=== PATIENT | female | born 2000 | race Two or more races ===

== ENCOUNTER 2021-07-21 13:04 | Inpatient (IN) | payer OTHER ==
[2021-07-21] MEDS ORDERED: Butorphanol Tartrate 1 MG/ML VIAL SLOW IVP PRN (13:47)
[2021-07-21] MEDS ORDERED: Lidocaine 1% (PF) 30 ML VIAL SC PRN (13:47)
[2021-07-21] MEDS ORDERED: Ibuprofen 800 MG TAB PO PRN (13:47)
[2021-07-21] MEDS ORDERED: Promethazine HCl 25 MG/ML VIAL IM PRN (13:47)
[2021-07-21] MEDS ORDERED: Docusate 100 MG CAP PO PRN (13:47)
[2021-07-21] MEDS ORDERED: Acetaminophen 500 MG TAB PO PRN (13:47)
[2021-07-21] MEDS ORDERED: Diphenoxylate HCl/Atropine Tablet PO PRN ×2 (13:47)
[2021-07-21] MEDS ORDERED: Ondansetron PF 4 MG/2 ML Vial IVP PRN (13:47)
[2021-07-21] MEDS ORDERED: Zolpidem Tartrate 5 MG TAB PO PRN (13:47)
[2021-07-21] MEDS ORDERED: HYDROcodone/Acetaminophen 5/325 mg Tablet PO PRN ×2 (13:47)
[2021-07-21] MEDS ORDERED: Misoprostol 200 MCG TAB PR PRN (13:47)
[2021-07-21] MEDS ORDERED: NS w/ Oxytocin 30 units 500 ML IV SCH ×2 (14:00)
[2021-07-21] MEDS ORDERED: NS w/ Oxytocin 30 units 500 ML IVPB SCH (14:00)
[2021-07-21 14:21] VITALS: BMI 60.7
[2021-07-21] MEDS ORDERED: Bupivacaine 0.25% HCL 30 ML VIAL ONE (14:33)
[2021-07-21] MEDS: Misoprostol 100 MCG TAB VAG SCH ×2 (15:29→21:51)
[2021-07-21 15:34] LABS: Hemoglobin 10.9 g/dL (12.0-15.5); Mean Corpuscular HGB CONC 31.9 g/dL (32.0-36.0); Mean Corpuscular Hemoglobin 24.4 pg (27.0-33.0); Mean Corpuscular Volume 76.7 fl (81.6-98.3); Mean Platelet Volume 10.1 fl (7.4-10.4); Platelet Count 252 10x3/uL (150-450); RBC Distribution Width 18.3 % (11.5-14.5); Red Blood Cell (RBC) Count 4.46 10x6/uL (3.90-5.03)
[2021-07-21 16:02] LABS: HIV (1/2) Antibody/Antigen Non-Reactive (NonReactive); HIV 1/2 INDEX 0.05 S/CO (<1.00); Hep B Surf Ag Non-Reactive S/CO (NonReactive)
[2021-07-21 16:32] LABS: HBSAg Index 0.19 S/CO (0-0.99)
[2021-07-21 17:30] LABS: SARS-CoV-2 NAA Rapid Test Not Detected (NotDetected)
[2021-07-21] MEDS: Labetalol HCl 200 MG TAB PO SCH (21:50)
[2021-07-21 22:03] LABS: Syphilis Antibody Index 16.59 S/CO (<1.00 Non-Reactive)
[2021-07-21 22:07] LABS: Syphilis Antibody REACTIVE (Nonreactive)
[2021-07-22] MEDS ORDERED: Fentanyl 2 mcg/Bup 0.1% Cadd 100 ML ONE ×2 (00:06→12:54)
[2021-07-22] MEDS ORDERED: Hydrocerin (Eucerin) Cream 120 gm Jar TOP PRN ×2 (01:16→21:04)
[2021-07-22] MEDS ORDERED: Ondansetron PF 4 MG/2 ML Vial IVP PRN ×4 (01:16→23:12)
[2021-07-22] MEDS ORDERED: Naloxone HCl 0.4 mg/ml Vial IVP PRN ×4 (01:16→21:04)
[2021-07-22] MEDS ORDERED: diphenhydrAMINE 50 MG/ML VIAL IVP PRN ×3 (01:16→23:12)
[2021-07-22] MEDS ORDERED: Lactated Ringer's 500 ML IV PRN (01:16)
[2021-07-22] MEDS ORDERED: Promethazine HCl 25 MG/ML VIAL IM PRN ×3 (01:16→23:12)
[2021-07-22] MEDS ORDERED: Acetaminophen 325 MG TAB PO PRN ×2 (01:16→21:22)
[2021-07-22] MEDS ORDERED: ePHEDrine Sulfate 50 MG/10 ML VIAL SLOW IVP PRN (01:16)
[2021-07-22] MEDS ORDERED: Fentanyl 2 mcg/Bupivacaine 0.1% Cassette 100 ML EPIDURAL SCH (01:30)
[2021-07-22] MEDS ORDERED: Communication Order-Pharmacy FS SCH ×3 (01:30→23:15)
[2021-07-22] MEDS ORDERED: Butorphanol Tartrate 1 MG/ML VIAL ONE (02:55)
[2021-07-22] MEDS ORDERED: Butorphanol Tartrate 1 MG/ML VIAL SLOW IVP PRN (04:51)
[2021-07-22] MEDS: Misoprostol 100 MCG TAB VAG SCH (05:34)
[2021-07-22] MEDS: Lactated Ringer's 1,000 ML IV SCH ×2 (08:04→18:29)
[2021-07-22] MEDS: hydrALAZINE 20 MG/ML VIAL SLOW IVP PRN ×2 (08:36→17:43)
[2021-07-22] MEDS: Labetalol HCl 200 MG TAB PO SCH (08:45)
[2021-07-22] MEDS ORDERED: Bupivacaine 0.25% HCL 30 ML VIAL ONE (09:21)
[2021-07-22] MEDS ORDERED: Azithromycin 500 MG VIAL ONE (18:27)
[2021-07-22] MEDS ORDERED: Fentanyl 100 MCG/2 ML VIAL ONE ×3 (18:32→23:12)
[2021-07-22] MEDS ORDERED: Morphine PF 10 MG/10 ML VIAL ONE (18:32)
[2021-07-22] MEDS ORDERED: Oxytocin 10 UNITS/ML VIAL ONE (18:42)
[2021-07-22] MEDS ORDERED: Ondansetron PF 4 MG/2 ML Vial ONE (18:42)
[2021-07-22] MEDS ORDERED: Dexamethasone 4 mg/ml Vial ONE (18:42)
[2021-07-22] MEDS ORDERED: Famotidine/PF 20 mg/2ml Vial ONE (18:42)
[2021-07-22] MEDS ORDERED: CEFAZOLIN 1 GM VIAL ONE (18:44)
[2021-07-22] MEDS ORDERED: Succinylcholine 200 MG/10 ml SYRINGE FS ONE (18:58)
[2021-07-22] MEDS ORDERED: PROPOFOL 20 ML ONE (18:58)
[2021-07-22] MEDS ORDERED: Glycopyrrolate 0.2 MG/ML 5 ML SYRINGE ONE (20:16)
[2021-07-22 20:17] LABS: Critical Notified By: CP:LS; Critical Notified Whom: NNP; pH (Cord, venous) 7.329 (7.250-7.350)
[2021-07-22 20:18] LABS: Critical Notified By: CP:LS; Critical Notified Whom: NNP; RapidComm Collect By CP:LS
[2021-07-22] MEDS ORDERED: Naloxone HCl 0.4 mg/ml Vial IV PRN ×2 (21:04→23:12)
[2021-07-22] MEDS ORDERED: Ondansetron HCl/PF 4 MG/2 ML Vial IVP PRN (21:04)
[2021-07-22] MEDS ORDERED: Fentanyl 100 MCG/2 ML VIAL SLOW IVP PRN (21:04)
[2021-07-22] MEDS ORDERED: Meperidine HCl/PF 25 MG/ML VIAL SLOW IVP PRN (21:04)
[2021-07-22] MEDS ORDERED: Promethazine HCl 25 MG SUPP PR PRN (21:04)
[2021-07-22] MEDS ORDERED: HYDROmorphone 2 MG/ML VIAL SLOW IVP PRN (21:04)
[2021-07-22] MEDS ORDERED: Ketorolac Tromethamine 30 MG/ML VIAL IVP SCH (21:15)
[2021-07-22] MEDS ORDERED: Misoprostol 200 MCG TAB PR PRN (21:22)
[2021-07-22] MEDS ORDERED: diphenhydrAMINE 25 MG CAP PO PRN ×2 (21:22→23:12)
[2021-07-22] MEDS ORDERED: hydrALAZINE 20 MG/ML VIAL SLOW IVP PRN (21:22)
[2021-07-22] MEDS ORDERED: Lanolin Ointment 7 GM TUBE TOP PRN (21:22)
[2021-07-22] MEDS ORDERED: Boostrix 0.5 ML (Tdap) VIAL IM ONE (21:22)
[2021-07-22] MEDS ORDERED: NS w/ Oxytocin 30 units 500 ML IV SCH (21:30)
[2021-07-22] MEDS ORDERED: Lactated Ringer's 1,000 ML IV SCH (21:30)
[2021-07-22] MEDS ORDERED: fentaNYL Citrate/PF PCA SYRING 50 ML IV PRN (23:12)
[2021-07-22] MEDS ORDERED: diphenhydrAMINE 50 MG/ML VIAL IM PRN (23:12)
[2021-07-22] MEDS ORDERED: Zolpidem Tartrate 5 MG TAB PO PRN (23:12)
[2021-07-23] MEDS: Ketorolac Tromethamine 30 MG/ML VIAL IVP PRN ×3 (02:41→19:58)
[2021-07-23] MEDS ORDERED: Enoxaparin Sodium 40 MG/0.4 ML SYRINGE SC SCH (04:00)
[2021-07-23 06:59] LABS: Hemoglobin 9.6 g/dL (12.0-15.5); Mean Corpuscular HGB CONC 31.7 g/dL (32.0-36.0); Mean Corpuscular Hemoglobin 24.4 pg (27.0-33.0); Mean Corpuscular Volume 77.1 fl (81.6-98.3); Mean Platelet Volume 9.8 fl (7.4-10.4); Platelet Count 229 10x3/uL (150-450); RBC Distribution Width 18.1 % (11.5-14.5); Red Blood Cell (RBC) Count 3.93 10x6/uL (3.90-5.03); White Blood Cell (WBC) Count 18.9 10x3/uL (3.5-10.5)
[2021-07-23] MEDS: Labetalol HCl 200 MG TAB PO SCH (07:53)
[2021-07-23] MEDS: Misoprostol 100 MCG TAB VAG SCH ×3 (07:54→07:59)
[2021-07-23] MEDS: Lactated Ringer's 1,000 ML IV SCH (07:54)
[2021-07-23] MEDS ORDERED: Meperidine HCl/PF 25 MG/ML VIAL IM PRN (09:15)
[2021-07-23] MEDS: Docusate Calcium (SURFAK) 240 MG CAP PO SCH (09:15)
[2021-07-23] MEDS ORDERED: HYDROcodone/Acetaminophen 5/325 mg Tablet PO PRN ×2 (09:15)
[2021-07-23] MEDS: Prenatal Vitamin 1 TAB PO SCH (09:15)
[2021-07-23] MEDS: Ferrous Sulfate 325 MG TAB PO SCH ×2 (09:15→23:59)
[2021-07-23] MEDS ORDERED: Promethazine HCl 25 MG SUPP PR PRN (13:28)
[2021-07-23] MEDS ORDERED: Ondansetron PF 4 MG/2 ML Vial IVP PRN (13:28)
[2021-07-23] MEDS ORDERED: diphenhydrAMINE 50 MG/ML VIAL IVP PRN (13:28)
[2021-07-23] MEDS ORDERED: Promethazine HCl 25 MG/ML VIAL IM PRN (13:28)
[2021-07-23] MEDS ORDERED: Hydrocerin (Eucerin) Cream 120 gm Jar TOP PRN (13:28)
[2021-07-23] MEDS ORDERED: Naloxone HCl 0.4 mg/ml Vial IVP PRN ×2 (13:28)
[2021-07-23] MEDS ORDERED: Naloxone HCl 0.4 mg/ml Vial IV PRN (13:28)
[2021-07-23] MEDS ORDERED: Communication Order-Pharmacy FS SCH (13:30)
[2021-07-23] MEDS: HYDROcodone/Acetaminophen 5/325 mg Tablet PO PRN ×3 (16:26→23:59)
[2021-07-23] MEDS: Simethicone Chewable 80 MG TAB PO PRN ×2 (16:28→19:57)
[2021-07-24] MEDS: HYDROcodone/Acetaminophen 5/325 mg Tablet PO PRN ×2 (05:36→18:02)
[2021-07-24] MEDS: Prenatal Vitamin 1 TAB PO SCH (08:44)
[2021-07-24] MEDS: Ferrous Sulfate 325 MG TAB PO SCH ×2 (08:44→21:58)
[2021-07-24] MEDS: Docusate Calcium (SURFAK) 240 MG CAP PO SCH ×3 (08:44→21:58)
[2021-07-24] MEDS: Ketorolac Tromethamine 30 MG/ML VIAL IVP PRN (08:45)
[2021-07-24] MEDS: Enoxaparin Sodium 40 MG/0.4 ML SYRINGE SC SCH (08:46)
[2021-07-24] MEDS: Ibuprofen 800 MG TAB PO SCH ×2 (14:50→21:58)
[2021-07-24] MEDS: Simethicone Chewable 80 MG TAB PO PRN (20:05)
[2021-07-25] MEDS: Simethicone Chewable 80 MG TAB PO PRN (05:08)
[2021-07-25] MEDS: Ibuprofen 800 MG TAB PO SCH (05:08)
[2021-07-25 08:36] VITALS: BP 139/87; TEMP 97.8
[2021-07-25] MEDS: Ferrous Sulfate 325 MG TAB PO SCH (09:14)
[2021-07-25] MEDS: Docusate Calcium (SURFAK) 240 MG CAP PO SCH (09:15)
[2021-07-25] MEDS: Prenatal Vitamin 1 TAB PO SCH (09:15)
[2021-07-25] MEDS: Enoxaparin Sodium 40 MG/0.4 ML SYRINGE SC SCH (09:15)
[2021-07-25] MEDS: HYDROcodone/Acetaminophen 5/325 mg Tablet PO PRN (09:18)
== END 2021-07-25 11:45 | disposition home or self-care (01) | DRG 787 ==
LOC: UNDOADMIN 13:04 → CSHLD 13:04 → CSHPP 07-22 22:00 → UNDOADMIN 07-22 22:00 → CSHLD 07-22 22:00
PROVIDERS: ADMIT Obstetrics & Gynecology; ATTEND Obstetrics & Gynecology
PROC: 10D00Z1 Extraction of Products of Conception, Low, Open Approach (ICD-10-PCS; principal; 2021-07-22)
DX: O14.94 Unspecified pre-eclampsia, complicating childbirth (principal); O98.32 Other infections with a predominantly sexual mode of transmission complicating childbirth; O13.4 Gestational [pregnancy-induced] hypertension without significant proteinuria, complicating childbirth; Z3A.37 37 weeks gestation of pregnancy; Z37.0 Single live birth; A64 Unspecified sexually transmitted disease; O99.214 Obesity complicating childbirth; O99.334 Smoking (tobacco) complicating childbirth; F17.200 Nicotine dependence, unspecified, uncomplicated; O99.814 Abnormal glucose complicating childbirth; O99.344 Other mental disorders complicating childbirth; O99.62 Diseases of the digestive system complicating childbirth; K21.9 Gastro-esophageal reflux disease without esophagitis; F32.A Depression, unspecified; F41.9 Anxiety disorder, unspecified; E66.01 Morbid (severe) obesity due to excess calories; Z20.822 Contact with and (suspected) exposure to COVID-19; O62.1 Secondary uterine inertia; O32.4XX0 Maternal care for high head at term, not applicable or unspecified
CPT/HCPCS: 36415; 51702; 82805; 85027; 86593; 86780; 86850; 86900; 86901; 87340; 87389; J0360; J0595; J0690; J1100; J1650; J1885; J2274; J2405; J2590; J2704; J3010; J7120; S0028; U0002

== ENCOUNTER 2021-09-07 02:31 | Emergency (ER) | payer OTHER ==
[2021-09-07 03:47] LABS: #Basophils 0.1 10x3/uL (0.0-0.2); #Eosinphils 0.2 10x3/uL (0.0-0.5); #Monocytes 0.9 10x3/uL (0.0-1.1); #Neutrophils 8.9 10x3/uL (1.5-8.4); %Basophils 0.4 % (0.0-2.0); %Eosinophils 1.1 % (0.0-6.0); %Lymphocytes 25.8 % (18.0-47.0); %Monocytes 6.5 % (0.0-10.0); %Neutrophils 65.9 % (40.0-75.0); Hemoglobin 11.7 g/dL (12.0-15.5); Mean Corpuscular HGB CONC 30.9 g/dL (32.0-36.0); Mean Corpuscular Hemoglobin 22.9 pg (27.0-33.0); Mean Corpuscular Volume 74.2 fl (81.6-98.3); Mean Platelet Volume 9.8 fl (7.4-10.4); Platelet Count 348 10x3/uL (150-450); RBC Distribution Width 17.2 % (11.5-14.5); Red Blood Cell (RBC) Count 5.11 10x6/uL (3.90-5.03); White Blood Cell (WBC) Count 13.5 10x3/uL (3.5-10.5)
[2021-09-07 04:06] LABS: ALT (SGPT) 10 U/L (8-55); AST (SGOT) 10 U/L (5-34); Albumin 3.8 g/dL (3.5-5.0); Alkaline Phosphatase 93 U/L (40-110); Anion Gap 13 mmol/L (10-20); BUN (Urea Nitrogen) 15 mg/dL (7.0-18.7); Bilirubin, Total 0.3 mg/dL (0.2-1.2); Calc. Creatinine Clearance 0 mL/min (70-130); Calcium 9.2 mg/dL (7.8-10.44); Carbon Dioxide 23 mmol/L (22-29); Chloride 108 mmol/L (98-107); Globulin 3.5 g/dL (2.4-3.5); Glucose 108 mg/dL (70-105); Potassium 4.1 mmol/L (3.5-5.1); Protein, Total 7.3 g/dL (6.0-8.3); Sodium 140 mmol/L (136-145)
[2021-09-07 04:07] LABS: BHCG - Serum Negative (NEGATIVE); Pregs Control Background? CLEAR/WHITE (CLR/WHITE); Pregs Control Bar Appear? YES (CONTROL BAR)
[2021-09-07 04:59] LABS: Bilirubin Neg (Negative); Blood, Urine 250 (Negative); Clarity Clear (Clear); Glucose, Urine (Dipstick) Normal (Negative); Ketone, Urine Negative (Negative); Leukocyte Negative (Negative); Nitrite Negative (Negative); Protein, Urine (Dipstick) Negative (Neg-Trace); Urobilinogen Normal mg/dL (Less than 2)
[2021-09-07 05:08] LABS: Bacteria/HPF 1+ HPF (None Seen)
== END 2021-09-07 05:22 | disposition home or self-care (01) ==
LOC: CSHERS 02:31
DX: R55 Syncope and collapse (principal); R10.84 Generalized abdominal pain; R42 Dizziness and giddiness
CPT/HCPCS: 36415; 80053; 81003; 81015; 84703; 85025; 93005

== ENCOUNTER 2022-02-18 23:06 | Emergency (ER) | payer OTHER ==
[2022-02-19 00:13] LABS: Bilirubin Neg (Negative); Blood, Urine 250 (Negative); Clarity Slightly Cloudy (Clear); Glucose, Urine (Dipstick) Normal (Negative); Ketone, Urine 5 mg/dL (Negative); Leukocyte 25 (Negative); Nitrite Negative (Negative); Protein, Urine (Dipstick) 30 mg/dl (Neg-Trace); Urobilinogen Normal mg/dL (Less than 2)
[2022-02-19] MEDS ORDERED: Ondansetron PF 4 MG/2 ML Vial ONE (00:16)
[2022-02-19 00:19] LABS: Pregnancy Test - Urine (BHCG) Negative (Negative); Pregu Control Background? CLEAR/WHITE (CLR/WHITE); Pregu Control Bar Appear? YES (CONTROL BAR)
[2022-02-19 00:26] LABS: Bacteria/HPF Rare-Few HPF (None Seen); RBC/HPF Greater than 50 HPF (0-3); WBC/HPF 21-50 HPF (0-3)
[2022-02-19 00:33] LABS: #Eosinphils 0.2 10x3/uL (0.0-0.5); #Neutrophils 6.6 10x3/uL (1.5-8.4); %Basophils 0.3 % (0.0-2.0); %Eosinophils 1.3 % (0.0-6.0); %Lymphocytes 32.1 % (18.0-47.0); %Monocytes 8.3 % (0.0-10.0); %Neutrophils 57.7 % (40.0-75.0); Mean Corpuscular HGB CONC 30.8 g/dL (32.0-36.0); Mean Corpuscular Hemoglobin 22.1 pg (27.0-33.0); Mean Corpuscular Volume 71.6 fl (81.6-98.3); Mean Platelet Volume 9.6 fl (7.4-10.4); Platelet Count 341 10x3/uL (150-450); RBC Distribution Width 15.6 % (11.5-14.5); Red Blood Cell (RBC) Count 5.43 10x6/uL (3.90-5.03); White Blood Cell (WBC) Count 11.5 10x3/uL (3.5-10.5)
[2022-02-19 00:49] LABS: ALT (SGPT) 15 U/L (8-55); AST (SGOT) 11 U/L (5-34); Albumin 3.9 g/dL (3.5-5.0); Alkaline Phosphatase 90 U/L (40-110); Anion Gap 13 mmol/L (10-20); BUN (Urea Nitrogen) 17 mg/dL (7.0-18.7); Bilirubin, Total 0.1 mg/dL (0.2-1.2); Calc. Creatinine Clearance 0 mL/min (70-130); Calcium 9.3 mg/dL (7.8-10.44); Carbon Dioxide 23 mmol/L (22-29); Chloride 108 mmol/L (98-107); Globulin 3.4 g/dL (2.4-3.5); Glucose 128 mg/dL (70-105); Lipase 18 U/L (8-78); Potassium 3.9 mmol/L (3.5-5.1); Protein, Total 7.3 g/dL (6.0-8.3); Sodium 140 mmol/L (136-145)
[2022-02-19] MEDS ORDERED: Cefdinir 300 MG CAP PO SCH (01:30)
[2022-02-19 15:37] LABS: Chlamydia by PCR Not Detected (NotDetected); GC by PCR Not Detected (NotDetected)
== END 2022-02-19 02:45 | disposition home or self-care (01) ==
LOC: CSHERS 23:06
DX: N39.0 Urinary tract infection, site not specified (principal)
CPT/HCPCS: 80053; 81003; 81015; 81025; 83690; 85025; 87086; 87480; 87491; 87510; 87591; 87660; 96374; J2405

== ENCOUNTER 2022-04-26 17:02 | Emergency (ER) | payer OTHER ==
[2022-04-26 17:57] LABS: Bilirubin Neg (Negative); Blood, Urine 10 (Negative); Clarity Clear (Clear); Glucose, Urine (Dipstick) Normal (Negative); Ketone, Urine 5 mg/dL (Negative); Leukocyte 25 (Negative); Nitrite Negative (Negative); Protein, Urine (Dipstick) 15 mg/dl (Neg-Trace); Specific Gravity, Urine 1.025 (1.002-1.036); Urobilinogen Normal mg/dL (Less than 2)
[2022-04-26 18:06] LABS: RBC/HPF 0-3 HPF (0-3); WBC/HPF 0-3 HPF (0-3)
[2022-04-26 18:07] LABS: Bacteria/HPF 1+ HPF (None Seen)
[2022-04-26 18:08] LABS: Calcium Oxalate Crystals 1+ HPF (None Seen)
[2022-04-26 18:25] LABS: #Eosinphils 0.1 10x3/uL (0.0-0.5); #Monocytes 0.7 10x3/uL (0.0-1.1); %Basophils 0.3 % (0.0-2.0); %Eosinophils 1.2 % (0.0-6.0); %Lymphocytes 34.1 % (18.0-47.0); Hemoglobin 11.6 g/dL (12.0-15.5); Mean Corpuscular Hemoglobin 22.4 pg (27.0-33.0); Mean Corpuscular Volume 72.1 fl (81.6-98.3); Mean Platelet Volume 9.6 fl (7.4-10.4); Platelet Count 343 10x3/uL (150-450); RBC Distribution Width 16.6 % (11.5-14.5); Red Blood Cell (RBC) Count 5.19 10x6/uL (3.90-5.03); White Blood Cell (WBC) Count 10.5 10x3/uL (3.5-10.5)
[2022-04-26 18:32] LABS: BHCG - Serum Negative (NEGATIVE); Pregs Control Background? CLEAR/WHITE (CLR/WHITE); Pregs Control Bar Appear? YES (CONTROL BAR)
[2022-04-26 18:39] LABS: ALT (SGPT) 13 U/L (8-55); AST (SGOT) 11 U/L (5-34); Albumin 3.7 g/dL (3.5-5.0); Alkaline Phosphatase 71 U/L (40-110); Anion Gap 12 mmol/L (10-20); BUN (Urea Nitrogen) 12 mg/dL (7.0-18.7); Bilirubin, Total 0.2 mg/dL (0.2-1.2); Calc. Creatinine Clearance 0 mL/min (70-130); Calcium 9.4 mg/dL (7.8-10.44); Carbon Dioxide 25 mmol/L (22-29); Chloride 107 mmol/L (98-107); Estimated GFR 128; Globulin 3.1 g/dL (2.4-3.5); Glucose 114 mg/dL (70-105); Potassium 3.9 mmol/L (3.5-5.1); Protein, Total 6.8 g/dL (6.0-8.3); Sodium 140 mmol/L (136-145)
== END 2022-04-26 19:51 | disposition home or self-care (01) ==
LOC: CSHERS 17:02
DX: E86.0 Dehydration (principal); R55 Syncope and collapse; N39.0 Urinary tract infection, site not specified
CPT/HCPCS: 36415; 80053; 81003; 81015; 84703; 85025; 87086; 96360

== ENCOUNTER 2022-05-02 12:00 | Emergency (ER) | payer OTHER ==
[2022-05-02 13:51] LABS: #Eosinphils 0.1 10x3/uL (0.0-0.5); #Neutrophils 7.5 10x3/uL (1.5-8.4); %Basophils 0.3 % (0.0-2.0); %Eosinophils 0.8 % (0.0-6.0); %Lymphocytes 27.6 % (18.0-47.0); %Monocytes 7.9 % (0.0-10.0); Hemoglobin 12.9 g/dL (12.0-15.5); Mean Corpuscular HGB CONC 30.6 g/dL (32.0-36.0); Mean Corpuscular Hemoglobin 22.1 pg (27.0-33.0); Mean Corpuscular Volume 72.3 fl (81.6-98.3); Mean Platelet Volume 9.7 fl (7.4-10.4); Platelet Count 402 10x3/uL (150-450); RBC Distribution Width 16.6 % (11.5-14.5); Red Blood Cell (RBC) Count 5.84 10x6/uL (3.90-5.03)
[2022-05-02] MEDS ORDERED: Ketorolac Tromethamine 30 MG/ML VIAL ONE (13:53)
[2022-05-02 13:54] LABS: BHCG - Serum Negative (NEGATIVE); Pregs Control Background? CLEAR/WHITE (CLR/WHITE); Pregs Control Bar Appear? YES (CONTROL BAR)
[2022-05-02 13:58] LABS: ALT (SGPT) 16 U/L (8-55); AST (SGOT) 15 U/L (5-34); Albumin 4.2 g/dL (3.5-5.0); Alkaline Phosphatase 73 U/L (40-110); Anion Gap 12 mmol/L (10-20); BUN (Urea Nitrogen) 9 mg/dL (7.0-18.7); Bilirubin, Total 0.3 mg/dL (0.2-1.2); Calc. Creatinine Clearance 0 mL/min (70-130); Calcium 9.7 mg/dL (7.8-10.44); Carbon Dioxide 25 mmol/L (22-29); Chloride 104 mmol/L (98-107); Estimated GFR 111; Globulin 3.1 g/dL (2.4-3.5); Glucose 135 mg/dL (70-105); Protein, Total 7.3 g/dL (6.0-8.3); Sodium 137 mmol/L (136-145)
[2022-05-02 14:00] LABS: Bilirubin Neg (Negative); Blood, Urine 10 (Negative); Clarity Slightly Cloudy (Clear); Glucose, Urine (Dipstick) Normal (Negative); Ketone, Urine Negative (Negative); Leukocyte 25 (Negative); Nitrite Negative (Negative); Protein, Urine (Dipstick) 30 mg/dl (Neg-Trace); Urobilinogen Normal mg/dL (Less than 2)
[2022-05-02 14:16] LABS: Bacteria/HPF 1+ HPF (None Seen); Mucous/LPF 1+ LPF (<2+); Squamous Epithelial 21-50 HPF (0-3)
== END 2022-05-02 15:35 | disposition home or self-care (01) ==
LOC: CSHERS 12:00
DX: E86.0 Dehydration (principal); R55 Syncope and collapse
CPT/HCPCS: 71045; 80053; 81003; 81015; 82550; 84484; 84703; 85025; 93005; 96361; 96374; J1885

== ENCOUNTER 2022-10-24 19:26 | Emergency (ER) | payer OTHER ==
[2022-10-24 21:25] LABS: SARS-CoV-2 NAA Rapid Test Not Detected (NotDetected)
== END 2022-10-24 21:36 | disposition home or self-care (01) ==
LOC: CSHERS 19:26
DX: J06.9 Acute upper respiratory infection, unspecified (principal); Z79.899 Other long term (current) drug therapy
CPT/HCPCS: 99283

== ENCOUNTER 2023-01-10 19:50 | Emergency (ER) | payer OTHER ==
[2023-01-10] MEDS ORDERED: Dexamethasone 4 MG TAB ONE (20:23)
[2023-01-10 21:14] LABS: SARS-CoV-2 NAA Rapid Test Not Detected (NotDetected)
== END 2023-01-10 20:36 | disposition home or self-care (01) ==
LOC: CSHERS 19:50
DX: B34.9 Viral infection, unspecified (principal); Z20.822 Contact with and (suspected) exposure to COVID-19
CPT/HCPCS: 87804; 99283; J8540

== ENCOUNTER 2023-04-25 18:24 | Emergency (ER) | payer OTHER ==
[2023-04-25 19:08] LABS: Bilirubin Neg (Negative); Blood, Urine Negative (Negative); Glucose, Urine (Dipstick) Normal (Negative); Ketone, Urine Negative (Negative); Leukocyte Negative (Negative); Nitrite Negative (Negative); Protein, Urine (Dipstick) Negative (Neg-Trace); Specific Gravity, Urine 1.015 (1.005-1.030); Urobilinogen Normal mg/dL (Less than 2)
[2023-04-25 19:11] LABS: Clarity Clear (Clear); Pregnancy Test - Urine (BHCG) Negative (Negative); Pregu Control Background? CLEAR/WHITE (CLR/WHITE); Pregu Control Bar Appear? YES (CONTROL BAR); Specific Gravity 1.015 (1.002-1.036)
[2023-04-25 19:24] LABS: Bacteria/HPF None Seen HPF (None Seen); CAUTI Indications for Culture Pelvic or flank pain; RBC/HPF None Seen HPF (0-3); Squamous Epithelial 0-3 HPF (0-3); Urine Culture Reflex No No; WBC/HPF None Seen HPF (0-3)
== END 2023-04-25 21:00 | disposition home or self-care (01) ==
LOC: CSHERS 18:24
DX: R10.9 Unspecified abdominal pain (principal); F17.290 Nicotine dependence, other tobacco product, uncomplicated
CPT/HCPCS: 76856; 81001; 81025

== ENCOUNTER 2023-11-22 21:19 | Emergency (ER) | payer SELFPAY ==
[2023-11-22] MEDS ORDERED: Metoclopramide HCl 10 MG (2 mL) VIAL ONE (22:17)
[2023-11-22] MEDS ORDERED: diphenhydrAMINE 50 MG/ML VIAL ONE (22:17)
[2023-11-22 22:21] LABS: Bilirubin Neg (Negative); Blood, Urine Negative (Negative); Clarity Clear (Clear); Glucose, Urine (Dipstick) Normal (Negative); Ketone, Urine Negative (Negative); Leukocyte Negative (Negative); Nitrite Negative (Negative); Protein, Urine (Dipstick) 30 mg/dl (Neg-Trace)
[2023-11-22 22:33] LABS: BHCG - Serum Negative (NEGATIVE); Pregs Control Background? CLEAR/WHITE (CLR/WHITE); Pregs Control Bar Appear? YES (CONTROL BAR)
[2023-11-22 22:38] LABS: ALT (SGPT) 10 U/L (8-55); AST (SGOT) 13 U/L (5-34); Albumin 3.7 g/dL (3.5-5.0); Alkaline Phosphatase 78 U/L (40-110); Anion Gap 14 mmol/L (10-20); BUN (Urea Nitrogen) 10 mg/dL (7.0-18.7); Bilirubin, Total 0.4 mg/dL (0.2-1.2); Calc. Creatinine Clearance 0 mL/min (70-130); Calcium 8.7 mg/dL (7.8-10.44); Carbon Dioxide 21 mmol/L (22-29); Chloride 106 mmol/L (98-107); Estimated GFR 120; Globulin 3.1 g/dL (2.4-3.5); Glucose 132 mg/dL (70-105); Lipase 11 U/L (8-78); Magnesium 1.9 mg/dL (1.6-2.6); Potassium 3.8 mmol/L (3.5-5.1); Protein, Total 6.8 g/dL (6.0-8.3); Sodium 137 mmol/L (136-145)
[2023-11-22 22:42] LABS: Bacteria/HPF None Seen HPF (None Seen); CAUTI Indications for Culture Pelvic or flank pain; RBC/HPF 0-3 HPF (0-3); WBC/HPF 0-3 HPF (0-3)
[2023-11-22 22:43] LABS: Urine Culture Reflex No No
[2023-11-22 22:46] LABS: #Eosinphils 0.1 10x3/uL (0.0-0.5); #Monocytes 0.7 10x3/uL (0.0-1.1); #Neutrophils 4.7 10x3/uL (1.5-8.4); %Basophils 0.1 % (0.0-2.0); %Eosinophils 0.9 % (0.0-6.0); %Lymphocytes 27.9 % (18.0-47.0); %Monocytes 9.4 % (0.0-10.0); %Neutrophils 61.4 % (40.0-75.0); Hematocrit 36.7 % (34.9-44.5); Hemoglobin 11.3 g/dL (12.0-15.5); Mean Corpuscular HGB CONC 30.8 g/dL (32.0-36.0); Mean Corpuscular Hemoglobin 21.6 pg (27.0-33.0); Mean Platelet Volume 9.6 fl (7.4-10.4); Platelet Count 279 10x3/uL (150-450); RBC Distribution Width 17.2 % (11.5-14.5); Red Blood Cell (RBC) Count 5.22 10x6/uL (3.90-5.03); White Blood Cell (WBC) Count 7.7 10x3/uL (3.5-10.5)
[2023-11-22 23:03] LABS: Mean Corpuscular Volume 70.3 fl (81.6-98.3)
[2023-11-22 23:04] LABS: Hypochromia SLIGHT = 6-15 cells (100X) (0-5/hpf); Microcytosis SLIGHT = 6-15 cells (100X) (0-5/hpf); Platelet Adequacy Comment Appears Adequate
== END 2023-11-22 23:19 | disposition home or self-care (01) ==
LOC: CSHERS 21:19
DX: R10.12 Left upper quadrant pain (principal); R10.812 Left upper quadrant abdominal tenderness; R51.9 Headache, unspecified; F17.290 Nicotine dependence, other tobacco product, uncomplicated; E66.9 Obesity, unspecified; Z55.6 Problems related to health literacy
CPT/HCPCS: 80053; 81001; 83690; 83735; 84703; 85025; 96365; 96375; J1200; J2765

== ENCOUNTER 2024-02-20 18:51 | Emergency (ER) | payer SELFPAY ==
[2024-02-20 19:50] LABS: Bilirubin Neg (Negative); Blood, Urine 10 (Negative); Clarity Clear (Clear); Glucose, Urine (Dipstick) Normal (Negative); Ketone, Urine Negative (Negative); Leukocyte 25 (Negative); Nitrite Negative (Negative); Protein, Urine (Dipstick) 30 mg/dl (Neg-Trace); Specific Gravity, Urine 1.025 (1.005-1.030); Urobilinogen Normal mg/dL (Less than 2)
[2024-02-20 20:03] LABS: Bacteria/HPF 3+ HPF (None Seen); CAUTI Indications for Culture Pelvic or flank pain; RBC/HPF 0-3 HPF (0-3); WBC/HPF 0-3 HPF (0-3)
[2024-02-20 20:04] LABS: Calcium Oxalate Crystals 3+ HPF (None Seen); Mucous/LPF 1+ LPF (<2+); Urine Culture Reflex No No
[2024-02-20 20:34] LABS: Influenza A by NAA Not Detected (NotDetected); Influenza B by NAA Not Detected (NotDetected); SARS-CoV-2 NAA Rapid Test DETECTED (NotDetected)
== END 2024-02-20 20:48 | disposition home or self-care (01) ==
LOC: CSHERS 18:51
DX: U07.1 COVID-19 (principal); J20.9 Acute bronchitis, unspecified; F17.290 Nicotine dependence, other tobacco product, uncomplicated
CPT/HCPCS: 71045; 81001; 93005

== ENCOUNTER 2024-04-24 10:05 | Emergency (ER) | payer OTHER, SELFPAY ==
[2024-04-24 11:39] LABS: Influenza A by NAA Not Detected (NotDetected); Influenza B by NAA Not Detected (NotDetected); SARS-CoV-2 NAA Rapid Test Not Detected (NotDetected)
[2024-04-24 12:04] LABS: Bilirubin Neg (Negative); Blood, Urine 10 (Negative); Clarity Slightly Cloudy (Clear); Glucose, Urine (Dipstick) Normal (Negative); Ketone, Urine 5 mg/dL (Negative); Leukocyte 500 (Negative); Nitrite Negative (Negative); Protein, Urine (Dipstick) 30 mg/dl (Neg-Trace); Specific Gravity, Urine 1.015 (1.005-1.030); Urobilinogen Normal mg/dL (Less than 2)
[2024-04-24 12:13] LABS: Pregnancy Test - Urine (BHCG) Negative (Negative); Pregu Control Background? CLEAR/WHITE (CLR/WHITE); Pregu Control Bar Appear? YES (CONTROL BAR); Specific Gravity 1.015 (1.002-1.036)
[2024-04-24 13:03] LABS: CAUTI Indications for Culture < 2yrs of age; WBC/HPF 21-50 HPF (0-3)
[2024-04-24 13:04] LABS: Bacteria/HPF 3+ HPF (None Seen); Transitional Epithelial 0-3 HPF (None Seen)
[2024-04-24 13:05] LABS: Epithelial Cast 0-3 LPF (None Seen)
[2024-04-24 13:08] LABS: Urine Culture Reflex Yes Yes
[2024-04-25 12:37] LABS: Chlamydia by PCR, Vaginal Swab DETECTED (NotDetected); GC by PCR, Vaginal Swab Not Detected (NotDetected)
== END 2024-04-24 13:50 | disposition home or self-care (01) ==
LOC: CSHERS 10:05
DX: B34.9 Viral infection, unspecified (principal); N76.0 Acute vaginitis; N39.0 Urinary tract infection, site not specified; R03.0 Elevated blood-pressure reading, without diagnosis of hypertension; F17.290 Nicotine dependence, other tobacco product, uncomplicated
CPT/HCPCS: 81001; 81025; 87086; 87480; 87491; 87510; 87591; 87660; 99284